=== PATIENT | male | born 1940 | race Caucasian/White ===

== ENCOUNTER 2023-08-27 22:53 | Observation (INO) | payer OTHER, SELFPAY ==
[2023-08-27] VITALS (10 sets, daily range): BP systolic 106–162; BP diastolic 68–94; BMI 25.8
[2023-08-27 15:41] LABS: % Basophils 0.3 % (0-2); % Eosinophils 0.2 % (0-6); % Immature Granulocytes 0.3 % (0-0.5); % Lymphocytes 11.5 % (20.5-51.1); % Monocytes 5.9 % (1.7-9.3); % Neutrophils 81.8 % (42.2-75.2); Absolute Lymphocytes 0.7 10^3/uL (1.2-3.4); Absolute Monocytes 0.4 10^3/uL (0.1-0.6); Absolute Neutrophils 5.3 10^3/uL (1.4-6.5); Hemoglobin 16.4 g/dL (13.0-18.0); Mean Corp Hgb Conc. 34.9 g/dL (33.0-37.0); Mean Corpuscular Hgb 30.5 pg (27.0-31.0); Mean Corpuscular Volume 87.4 fL (80.0-94.0); Mean Platelet Volume 9.3 fL (7.4-10.4); Nucleated Red Blood Cells % 0 % (-); Platelet Count 181 10^3/uL (130-400); Red Blood Cell Count 5.38 10^6/uL (4.70-6.10); Red Cell Dist. Width 13.1 % (11.5-14.5); White Blood Cell Count 6.4 10^3/uL (4.8-10.8)
[2023-08-27 15:55] LABS: ALT (SGPT) < 10 U/L (0-50); AST (SGOT) 25 U/L (17-59); Albumin 4.6 g/dl (3.5-5.0); Alkaline Phosphatase 83 U/L (38-126); Blood Urea Nitrogen 24 mg/dl (9-20); Calcium 9.2 mg/dl (8.4-10.2); Carbon Dioxide 22 mmol/L (22-30); Chloride 101 mmol/L (98-107); Glucose 68 mg/dl (70-99); Potassium 4.8 mmol/L (3.5-5.1); Sodium 134 mmol/L (135-145); Total Bilirubin 1.3 mg/dl (0.2-1.3); Total Protein 7.6 g/dl (6.3-8.2); eGFR > 60.00
--- NOTE | 2023-08-27 19:18 | ED.GENMED ---
History of Present Illness
General
Chief Complaint: Weakness
Source: patient and family
Exam Limitations: none
Time Seen by Provider: 08/27/23 19:02
Nursing documentation reviewed up to this point in time: agreed with
Travel History
Have you had any contact with someone who has COVID-19?: No
Do you have any symptoms of coronavirus? Fever > 100 degrees, chills, cough, shortness of breath, sore throat, loss of taste or smell, muscle aches, or headache?: No
History of Present Illness
History of Present Illness:
83-year-old male Parkinson's on Sinemet 3 times daily compliant with his meds, said about a week or more of weakness had a few falls, never struck his head today could not walk to the bathroom his right leg feels weak has some back pain no nausea or
vomiting no fever states not drinking enough fluids because he urinates frequently, no chest pain no shortness of breath does feel constipated no headache no slurred speech no arm weakness also states his feet intermittently turn purple without
pain not having the symptoms now
Past History
Past History
ED Past Medical History: Hypercholesterolemia and Other (Parkinson's, recurrent bronchitis and pneumonia, status post left carotid stent)
ED Past Surgical History: Orthopedic and Other (Carotid)
Social History
Tobacco: Former smoker
Alcohol: None
Drug: None
Personal:
Living: with family
Employment: Retired
Family History
Family History: Other (Liver cancer)
Review of Systems
Review of Systems
All Other Systems: Not applicable
Constitutional: Denies fever, weight gain, weight loss or fatigue
EENT: Reports no symptoms
Respiratory: Reports no symptoms
ABD/GI: Reports no symptoms
Musculoskeletal: Reports back pain
Skin: Reports no symptoms
Neurological: Reports weakness; Denies dizzy or numbness
Phy Exam
Physical Exam
Physical Exam:
Physical Exam
General: no apparent distress, not acutely ill
Neck: No jaundice no tongue bite, dry lips
Heart: s1/s2 regular rate and rhythm, no murmur. equal radial pulses.
Lungs: no acute respiratory distress. clear bilaterally
Abdomen: Nontender
Neuro: alert and oriented. Mild weakness of the right lower extremity able to lift off the bed
Skin: no rash
Psychiatric: well kept. interactive and cooperative
Extremities: no edema.
Course
Orders/Labs/Results
Orders:
Orders
08/27/23 15:27
Complete Blood Count/With Diff Urgent
Comprehensive Metabolic Panel Urgent
Creatine Phosphokinase Urgent
Comment: ADD ON
08/27/23 19:13
Add On- LAB Urgent
Tests Added?: cpk
Electrocardiogram (*1) Urgent
Reason for Study: Fatigue / Weakness
EKG- Treatment ONCE
0.9% Sodium Chloride 1000 ml [Nss] 1,000 ml IV BOLUS
Acetaminophen [Tylenol] 650 mg PO NOW STA
08/27/23 19:14
Lumbar Spine, 2 or 3 View [CR Lumbar Spine 2 Or 3 Views] Urgent
Comment:
Reason For Exam: pain
08/27/23 19:20
CT Head W/o Iv Contrast Urgent
Comment:
Reason For Exam: fall weaeknss right leg
08/27/23 19:[address] Non Medication Order As Directed
Physician Order: bedside dopplers for foot pulses, thanks
Above order entered?: Yes
08/27/23 19:43
Urinalysis Reflex To Culture Urgent
Date Specimen was Collected: 08/27/23
Time Specimen was Collected: 19:20
Urine Microscopic Reflex Cult Urgent
Carbidopa/Levodopa [Sinemet 25-100] 2 tablet PO NOW STA
Abnormal Lab Results
08/27/23 08/27/23
15:27 19:43
Absolute Lymphs (auto) 0.7 L 10^3/uL
(1.2-3.4)
Neutrophils % 81.8 H %
(42.2-75.2)
Lymphocytes % 11.5 L %
(20.5-51.1)
Sodium 134 L mmol/L
(135-145)
BUN 24 H mg/dl
(9-20)
Glucose 68 L mg/dl
(70-99)
Creatine Kinase 54 L U/L
(55-170)
Urine Ketones 3+ A
(Negative)
Ur Occult Blood Reflex 1+ A
(Negative)
Urine Bilirubin 1+ A
(Negative)
Urine RBC 3-6 A /HPF
(0-2)
08/27/23 15:27
08/27/23 15:27
Vital Signs
Initial and Last Documented VS:
Initial Vital Signs
Temp Pulse Resp BP Pulse Ox
98.3 F 88 19 144/94 99
08/27/23 15:21 08/27/23 15:21 08/27/23 15:21 08/27/23 15:21 08/27/23 15:21
Last Documented Vital Signs
Temp Pulse Resp BP Pulse Ox
98.3 F 66 23 153/83 99
08/27/23 15:21 08/27/23 21:15 08/27/23 21:30 08/27/23 21:30 08/27/23 21:30
MDM/Problems Addressed
Differential Diagnosis Includes:
Dehydration deconditioning UTI compression fracture central process
MDM/Problems Addressed:
Weakness
Chronic conditions affecting care: Neurological disorder
Acute Exacerbation and/or Progression of Chronic Illness: Neurological disorder
*Radiology
Radiology exam reviewed: preliminary read by ED provider
*Pulse Oximetry
Patient hypoxic: no
*Programming Manager Interpretation
Rate: normal
Interpretation: normal
Heart Rate: 78
Rhythm: sinus
*Critical Care Note
Total Time (30-74mins, 75-104mins- exclusive of procedures): Not Applicable
Update Note
Update Note:
8:20 PM urine noted, does have ketones no white cells, CT report noted LS-spine film noted patient was given his evening dose of Sinemet Tylenol and some fluids we will see how he responds
10:10 PM patient still weak, not sure how much of this is reversible, nonetheless he is high risk for falls, believe he benefit from admission for IV fluids and consideration for physical therapy specialty consultation
ED Attending Note
-
Portions of this chart may have been created with voice recognition software.� Occasional wrong word or��sound alike� substitutions may have occurred due to the inherent limitations of voice recognition software.
Discharge Plan
Departure
Patient Disposition: Admit
Date of Disposition: 08/27/23
Time of Disposition: 22:09
Admit to: Med/Surg
Presentation/result/management discussed w/ accepting MD/DO: Hospitalist
Patient with high blood pressure during this ER visit?: No
Condition: Good
Discharge Problem:
Parkinsons, Dehydration
Prescriptions:
No Action
sertraline 100 MG tablet
100 mg PO BID
cyanocobalamin (vitamin B-12) 1,000 MCG tablet
1,000 mcg PO DAILY
carbidopa-levodopa 1 EACH tablet
1.5 tab PO TID
cholecalciferol (vitamin D3) 2,000 UNITS tablet
2,000 unit PO DAILY
omega 1-whp-lni-fish oil [Fish Oil] 1 EACH capsule
1,000 mg PO DAILY
atorvastatin 10 MG tablet
10 mg PO MOWEFR@1800 Qty: 60 3RF
clopidogrel 75 MG tablet
75 mg PO DAILY Qty: 90 3RF
aspirin 81 MG tablet,chewable
81 mg PO DAILY 0RF
lisinopril 2.5 MG tablet
2.5 mg PO DAILY Qty: 90 3RF
metoprolol tartrate 25 MG tablet
25 mg PO Q12 Qty: 180 3RF
Referrals:
Niraj Cook MD [Family Provider] -
Interventions
Interventions:
*Risk Screen - Suicide Last Done: 08/27/23 15:19
*Neglect/Abuse Screening Last Done: 08/27/23 15:19
ED- Fall Risk Assessment Last Done: 08/27/23 19:45
*ED COVID-19 Vaccine History Last Done: 08/27/23 19:45
ED- Cardiac Assessment Last Done: 08/27/23 19:45
ED- Neurological Assessment Last Done: 08/27/23 19:45
ED- Pulmonary Assessment Last Done: 08/27/23 19:45
[2023-08-27 19:43] LABS: Creatine Phosphokinase 54 U/L (55-170)
[2023-08-27 19:54] LABS: Urine Albumin Negative (Neg - Trace); Urine Bilirubin 1+ (Negative); Urine Character Clear (Clear); Urine Color Yellow; Urine Glucose Negative (Negative); Urine Ketone 3+ (Negative); Urine Leukocyte Negative (Negative); Urine Nitrite Negative (Negative); Urine Occult Blood 1+ (Negative); Urine Specific Gravity 1.025 (<1.030); Urine Urobilinogen Negative (Neg - 1+)
[2023-08-27 20:01] LABS: Urine Squamous Cell 0-2 /LPF (Few); Urine White Cell 0-2 /HPF (0-5)
[2023-08-27] MEDS: TYLENOL 650 MG PO (20:15)
[2023-08-27] MEDS: NSS 1000 IV (20:15)
[2023-08-27] MEDS: SINEMET 25-100 2 TABLET PO (21:23)
--- NOTE | 2023-08-27 22:37 | HPS.HSE ---
Family Physician
-
Family Physician: Niraj Cook
Chief Complaint
-
weakness
History of Present Illness
83-year-old male past medical history of Parkinson's disease, constipation, hypertension, anxiety, hypercholesterolemia, left internal carotid artery stent, alcohol use disorder, presenting with progressive weakness associated with a fall a month
ago. He states that his Parkinson disease has been slowly progressing over at least a year. Over the past few weeks he has had increasing difficulty ambulating due to bilateral lower extremity weakness. He also reports tingling in the toes over
the past few months. He denies missing any of his Parkinson's medications.
He has had increased urinary frequency recently and sometimes does not make it to the bathroom in time and urinates himself. He denies any fecal incontinence. He has been constipated and his last bowel movement was a few days ago. He
intermittently has abdominal bloating and pain. He denies any nausea or vomiting.
Patient also complaining of upper back pain across his back without radiation to the upper extremities. No pain currently.
Patient follows Dr. Steele per neurology for his Parkinson's who he sees every 6 months. He last saw him in in January. No recent changes in Parkinson's medications. He had apparently been recommending physical therapy which patient declined.
Medical History
Past Medical History
Past Medical History: Reports Other (Parkinson's disease, constipation, hypertension, anxiety, hypercholesterolemia, left internal carotid artery stent, alcohol use disorder)
Past Surgical History: Reports None
Social History
Tobacco: Non-smoker
Alcohol: None
Drug: None
Family History
Family History: Not pertinent
Allergies / Home Medications
Allergies reflects when Allergies were last updated in [employer].
Home Medications with original date entered in [employer]
Allergy/Medication List:
Allergies
Allergy/AdvReac Type Severity Reaction Status Date / Time
Dxnaslj-SPU-JzZ Reductase Allergy Unknown Verified 11/30/17 18:44
Inhibitor
[Fghnmfs-Zfm-Tnr Reductase
Inhibitor]
Home Medications
cholecalciferol (vitamin D3) 50 mcg (2,000 unit) tablet 2,000 unit PO DAILY 11/28/16
cyanocobalamin (vitamin B-12) 1,000 mcg tablet 1,000 mcg PO DAILY 11/28/16
sertraline 100 mg tablet 100 mg PO BID 11/28/16
aspirin 325 mg tablet 325 mg PO DAILY 08/27/23
carbidopa 25 mg-levodopa 100 mg tablet 2 tab PO TID 08/27/23
Review of Systems
-
History Source: Patient
A 12 point ROS was completed and negative except as noted: Yes
Constitutional: Reports No Symptoms
EENT: Reports No Symptoms
Respiratory: Reports No Symptoms
Cardiac: Reports No Symptoms
Abdomen/GI: Reports No Symptoms
: Reports No Symptoms
Musculoskeletal: Reports No Symptoms
Skin: Reports No Symptoms
Neurological: Reports See HPI
Endocrine: Reports No Symptoms
Hematologic/Lymphatic: Reports No Symptoms
Psych: Reports No Symptoms
Physical Exam
Vital Signs
Vital Signs
Temp Pulse Resp BP Pulse Ox
98.3 F 66 23 153/83 99
08/27/23 15:21 08/27/23 21:15 08/27/23 21:30 08/27/23 21:30 08/27/23 21:30
Physical Exam
General: Well Developed, Well Nourished and No Apparent Distress
HEENT: NormoCephalic, Moist mucous membranes and Atraumatic
Respiratory: Clear
Cardiac: S1/S2 and Regular Rhythm; No Murmur or Rub
GI: Soft, Non Tender, Non Distended and Normal Bowel Sounds; No Organomegaly
Rectal: Deferred by Provider
Musculoskeletal: No Clubbing, No Cyanosis and No Edema
Skin: No Rash
Neuro: Nonfocal/grossly intact
Laboratory Results
-
08/27/23 15:27
08/27/23 15:27
Laboratory Results
Total Bilirubin 1.3 mg/dl (0.2-1.3) 08/27/23 15:27
AST 25 U/L (17-59) 08/27/23 15:27
ALT < 10 U/L (0-50) 08/27/23 15:27
Alkaline Phosphatase 83 U/L (38-126) 08/27/23 15:27
Data Reviewed
-
Lab Data: Labs Reviewed by me
Old Records: Reviewed
Impression/Plan
-
IMPRESSION:
PLAN:
# Progressive weakness secondary to worsening Parkinson's disease
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
-Continue carbidopa-levodopa
-Outpatient follow-up with neurology
-Check B12, TSH
-Continue B12 supplementation
-PT/OT
# Urinary incontinence episode secondary Parkinson
-Urinalysis negative for infection
-Bladder scan protocol
# Constipation/intermittent abdominal pain secondary to immobility
-Start MiraLAX once a day
# Upper back pain likely due to degenerative disc disease
-Lumbar x-ray no acute pathology
Hypercholesterolemia
-Continue statin
Carotid artery stenosis status post left carotid artery stent
-Continue aspirin
Essential hypertension
-Continue lisinopril, metoprolol
Alcohol use disorder
Anxiety
-Continue sertraline
DNR/DNI
DVT prophylaxis�heparin
Regular diet
[2023-08-28] VITALS (15 sets, daily range): BP systolic 107–176; BP diastolic 71–101; PULSE 73; O2SAT 98
[2023-08-28 07:00] LABS: % Basophils 0.6 % (0-2); % Eosinophils 0.2 % (0-6); % Immature Granulocytes 0.2 % (0-0.5); % Lymphocytes 18.4 % (20.5-51.1); % Monocytes 7.8 % (1.7-9.3); % Neutrophils 72.8 % (42.2-75.2); Absolute Monocytes 0.4 10^3/uL (0.1-0.6); Absolute Neutrophils 3.8 10^3/uL (1.4-6.5); Hematocrit 42.4 % (39.0-52.0); Hemoglobin 14.1 g/dL (13.0-18.0); Mean Corp Hgb Conc. 33.3 g/dL (33.0-37.0); Mean Corpuscular Hgb 29.9 pg (27.0-31.0); Mean Corpuscular Volume 89.8 fL (80.0-94.0); Mean Platelet Volume 9.5 fL (7.4-10.4); Nucleated Red Blood Cells % 0 % (-); Platelet Count 144 10^3/uL (130-400); Red Blood Cell Count 4.72 10^6/uL (4.70-6.10); Red Cell Dist. Width 13.1 % (11.5-14.5); White Blood Cell Count 5.2 10^3/uL (4.8-10.8)
--- NOTE | 2023-08-28 07:13 | EDRN ---
Report recieved from DANUTA Lara. Pt comfortably in stretcher, IVF not infusing at this time.
[2023-08-28 07:36] LABS: ALT (SGPT) < 10 U/L (0-50); AST (SGOT) 20 U/L (17-59); Albumin 3.7 g/dl (3.5-5.0); Alkaline Phosphatase 64 U/L (38-126); Blood Urea Nitrogen 24 mg/dl (9-20); Calcium 8.9 mg/dl (8.4-10.2); Carbon Dioxide 19 mmol/L (22-30); Chloride 100 mmol/L (98-107); Estimated Creatinine Clearance 71 ml/min; Glucose 52 mg/dl (70-99); Potassium 4.3 mmol/L (3.5-5.1); Sodium 135 mmol/L (135-145); Total Protein 6.3 g/dl (6.3-8.2); eGFR > 60.00
[2023-08-28] MEDS: ASPIRIN 325 MG PO (08:03)
[2023-08-28] MEDS: MIRALAX 17 GRAMS PO (08:03)
[2023-08-28] MEDS: VITAMIN D3 (cholecalciferol) 50 MCG PO (08:04)
[2023-08-28] MEDS: VITAMIN B-12 1000 MCG PO (08:04)
[2023-08-28] MEDS: ZOLOFT 100 MG PO ×2 (08:04→16:48)
[2023-08-28] MEDS: SINEMET 25-100 2 TABLET PO ×3 (08:04→21:23)
[2023-08-28 08:05] LABS: Vitamin B12 642 pg/ml (239-931)
[2023-08-28] MEDS: HEPARIN 5000 UNITS SC ×2 (08:05→19:38)
[2023-08-28 08:39] LABS: Glucose - Point of Care 85 mg/dl (70-99)
--- NOTE | 2023-08-28 08:59 | EDRN ---
VAT contacted for labs and cortosyn injection.
--- NOTE | 2023-08-28 09:10 | EDRN ---
VAT at bedside along with PT
--- NOTE | 2023-08-28 10:19 | EDRN ---
Pt completed 50&
--- NOTE | 2023-08-28 10:21 | EDRN ---
Pt completed 50% of breakfast tray, light dimmed per patient request and HOB lowered. Family at bedside with patient. Call light in reach
[2023-08-28 10:22] LABS: ACTH Stim Cortisol 0 Min 19.9 ug/dl
[2023-08-28] MEDS: CORTROSYN 0.25 MG IV (10:31)
--- NOTE | 2023-08-28 12:13 | W.PN.HOSP.TC ---
Today's Communication/Plan
-
Lisinopril
Sodium bicarbonate
PT/OT
Monitor glucoses
Assessment / Plan
Assessment / Plan
Gen-AAOx3, NAD
HEENT-NC, AT, anicteric, clear oral mm
Neck-supple
CV-reg, no M, +S1/S2
Lungs-clear B/L
Abd-soft, NT, ND
Ext-no edema
Musculoskeletal-no cyanosis, clubbing
Skin-warm and dry
Neuro-grossly non-focal
Psych-calm, cooperative
Generalized weakness -likely due to deconditioning in the setting of frailty and advancing Parkinson's disease. He is sedentary at home. Does not exercise. Recommend continuing PT/OT. Will need discharge to SNF. Discussed with daughter at the
bedside. Patient states the weakness has been gradual onset over the past few years and progressing. Was using a cane at home up until a month ago when he switched to a walker due to progressive weakness. TSH normal. No signs or symptoms of
infection.
CT head done in the emergency room shows no acute disease, does show diffuse cortical atrophy with mild nonspecific white matter changes.
Gap metabolic acidosis -anion gap 16. Urine ketones positive. Serum bicarbonate 19. Unclear etiology. Will start oral sodium bicarbonate, repeat labs tomorrow.
Hypoglycemia -glucose 52 on serum assay this morning. No evidence of adrenal insufficiency on ACTH stimulation test thing. Hypoglycemia is listed as a potential side effect of sertraline and he is on a high dose of 100 mg twice daily.
Hyponatremia -present on admission. Now resolved.
Elevated blood pressure -he likely has essential hypertension. Not on antihypertensives at home. Relative bradycardia noted. I spoke with on the phone and she states that he is not on antihypertensives at home but previously was several
years ago. Patient does not check blood pressures at home. Can start with low-dose lisinopril and monitor response.
Constipation -start bowel regimen.
Anxiety disorder/panic attacks -he is on high-dose sertraline.
Carotid stenosis -status post left carotid stenting.
DNR
Dispo -will need SNF on discharge.
updated on the phone. She prefers [facility] as a facility for rehab. Case management updated.
Anticipated Discharge: Within 24 hours
Subjective/Interval History
-
Date of Service: August 28, 2023
Patient seen/examined. Complaining of chronic weakness.
Objective Data
-
Labs:
Laboratory Results
08/28/23
06:18
WBC 5.2
Hgb 14.1
Hct 42.4
Plt Count 144 D
Sodium 135
Potassium 4.3
Chloride 100
Carbon Dioxide 19 L
BUN 24 H
Creatinine 0.8
Glucose 52 L*
Calcium 8.9
Total Bilirubin 1.0
AST 20
ALT < 10
Alkaline Phosphatase 64
Vital Signs:
Vital Signs
Temp Pulse Resp BP Pulse Ox
98.3 F 62 21 153/74 98
08/27/23 15:21 08/28/23 00:45 08/28/23 00:45 08/28/23 10:00 08/28/23 09:17
Review of Systems
-
History Source: Patient
All other systems: Reviewed and negative
[2023-08-28 12:48] LABS: ACTH Stim Cortisol 60 Min 39.5 ug/dl
[2023-08-28] MEDS: ZESTRIL 10 MG PO (13:29)
[2023-08-28] MEDS: SODIUM BICARBONATE 650 MG PO ×2 (15:39→21:23)
[2023-08-28 17:56] LABS: Glucose - Point of Care 124 mg/dl (70-99)
[2023-08-28 21:38] LABS: Glucose - Point of Care 90 mg/dl (70-99)
[2023-08-29 07:00] VITALS: BP 165/91
[2023-08-29 07:51] LABS: Glucose - Point of Care 80 mg/dl (70-99)
[2023-08-29 08:25] LABS: Blood Urea Nitrogen 22 mg/dl (9-20); Calcium 9.1 mg/dl (8.4-10.2); Carbon Dioxide 25 mmol/L (22-30); Chloride 97 mmol/L (98-107); Estimated Creatinine Clearance 71 ml/min; Glucose 74 mg/dl (70-99); Potassium 4.4 mmol/L (3.5-5.1); Sodium 132 mmol/L (135-145); eGFR > 60.00
[2023-08-29] MEDS: VITAMIN B-12 1000 MCG PO (09:16)
[2023-08-29] MEDS: ASPIRIN 325 MG PO (09:16)
[2023-08-29] MEDS: MIRALAX 17 GRAMS PO (09:16)
[2023-08-29] MEDS: ZOLOFT 100 MG PO ×2 (09:17→20:17)
[2023-08-29] MEDS: SINEMET 25-100 2 TABLET PO ×3 (09:17→22:25)
[2023-08-29] MEDS: VITAMIN D3 (cholecalciferol) 50 MCG PO (09:17)
[2023-08-29] MEDS: HEPARIN 5000 UNITS SC ×2 (09:17→20:16)
[2023-08-29] MEDS: ZESTRIL 10 MG PO (09:18)
[2023-08-29] MEDS: SODIUM BICARBONATE 650 MG PO (09:18)
--- NOTE | 2023-08-29 09:27 | W.PN.HOSP.TC ---
Today's Communication/Plan
-
Check urine studies
Fluid restriction
Discharge planning
Assessment / Plan
Assessment / Plan
Gen-AAOx3, NAD
HEENT-NC, AT, anicteric, clear oral mm
Neck-supple
CV-reg, no M, +S1/S2
Lungs-clear B/L
Abd-soft, NT, ND
Ext-no edema
Musculoskeletal-no cyanosis, clubbing
Skin-warm and dry
Neuro-grossly non-focal
Psych-calm, cooperative
Generalized weakness -likely due to deconditioning in the setting of frailty and advancing Parkinson's disease. He is sedentary at home. Does not exercise. Recommend continuing PT/OT. Will need discharge to SNF. Discussed with daughter at the
bedside. Patient states the weakness has been gradual onset over the past few years and progressing. Was using a cane at home up until a month ago when he switched to a walker due to progressive weakness. TSH normal. No signs or symptoms of
infection.
CT head done in the emergency room shows no acute disease, does show diffuse cortical atrophy with mild nonspecific white matter changes.
Gap metabolic acidosis -resolved. Bicarbonate 25. Will stop sodium bicarbonate and recheck labs tomorrow.
Hypoglycemia -glucose 74 on serum assay this morning. No evidence of adrenal insufficiency on ACTH stimulation test thing. Hypoglycemia is listed as a potential side effect of sertraline and he is on a high dose of 100 mg twice daily.
Hyponatremia -present on admission. Sodium 132 today. TSH normal. Check urine studies.
Elevated blood pressure -he likely has essential hypertension. Not on antihypertensives at home. Relative bradycardia noted. I spoke with on the phone and she states that he is not on antihypertensives at home but previously was several
years ago. Patient does not check blood pressures at home. Can start with low-dose lisinopril and monitor response.
Constipation -start bowel regimen.
Anxiety disorder/panic attacks -he is on high-dose sertraline.
Carotid stenosis -status post left carotid stenting.
DNR
Dispo -will need SNF on discharge. prefers [facility].
I offered the patient melatonin in the hospital to help him sleep but he declined.
Anticipated Discharge: Within 24 hours
Subjective/Interval History
-
Date of Service: August 29, 2023
Patient seen and examined. Sitting in the chair. Complaining of generalized weakness. Did not sleep well.
Objective Data
-
Labs:
Laboratory Results
08/29/23
06:51
Sodium 132 L
Potassium 4.4
Chloride 97 L
Carbon Dioxide 25
BUN 22 H
Creatinine 0.8
Glucose 74
Calcium 9.1
Vital Signs:
Vital Signs
Temp Pulse Resp BP Pulse Ox
97.5 F 72 18 165/91 97
08/29/23 07:00 08/29/23 07:00 08/29/23 07:00 08/29/23 07:00 08/29/23 07:00
I&O
08/28/23 08/29/23 08/30/23
06:59 06:59 06:59
Intake Total 240 / 240
Output Total 400 / 400
Balance -160 / -160
Review of Systems
-
History Source: Patient
All other systems: Reviewed and negative
[2023-08-29] MEDS: COLACE 100 MG PO ×2 (11:05→20:16)
[2023-08-29 11:39] LABS: Osmolality Urine 659 mOsm/kg (300-900)
[2023-08-29 11:54] LABS: Glucose - Point of Care 102 mg/dl (70-99)
[2023-08-29 11:59] LABS: Urine Sodium 130 mmol/L (30-90)
[2023-08-29 15:00] VITALS: BP 121/66
--- NOTE | 2023-08-29 15:29 | CM ---
met with patient and daughter at bedside.patient lives with ,2 dghts in house with 4 step to enter,his bed and bath is on the second level(up 6 steps).he amb with a walker,is I with his walk in shower.he does not use his cpap. his pcp is "Kiko"hilary brar and he uses [facility] [employer] in [place].patient is adm with parkinson's /weakness.he was seewn by therapy who recommended snf.daughter wants [facility].referral sent to [facility] for [facility].patient is stable for dc to facility
per attending.
[2023-08-29 16:54] LABS: Glucose - Point of Care 91 mg/dl (70-99)
[2023-08-29] MEDS: XANAX 0.25 MG PO (17:01)
[2023-08-29 21:24] LABS: Glucose - Point of Care 89 mg/dl (70-99)
[2023-08-29 23:00] VITALS: BP 120/71
[2023-08-30 07:12] LABS: Blood Urea Nitrogen 20 mg/dl (9-20); Calcium 9.5 mg/dl (8.4-10.2); Carbon Dioxide 29 mmol/L (22-30); Chloride 97 mmol/L (98-107); Estimated Creatinine Clearance 63 ml/min; Glucose 79 mg/dl (70-99); Potassium 4.4 mmol/L (3.5-5.1); Sodium 133 mmol/L (135-145); eGFR > 60.00
[2023-08-30 08:14] VITALS: BP 142/83
[2023-08-30] MEDS: SINEMET 25-100 2 TABLET PO ×3 (08:47→22:12)
[2023-08-30] MEDS: ZOLOFT 100 MG PO ×2 (08:47→20:05)
[2023-08-30] MEDS: ASPIRIN 325 MG PO (08:48)
[2023-08-30] MEDS: ZESTRIL 10 MG PO (08:48)
[2023-08-30] MEDS: COLACE 100 MG PO ×2 (08:48→20:05)
[2023-08-30] MEDS: VITAMIN D3 (cholecalciferol) 50 MCG PO (08:48)
[2023-08-30] MEDS: HEPARIN 5000 UNITS SC ×2 (08:48→20:05)
[2023-08-30] MEDS: VITAMIN B-12 1000 MCG PO (08:48)
[2023-08-30] MEDS: MIRALAX 17 GRAMS PO (08:48)
--- NOTE | 2023-08-30 09:27 | W.PN.HOSP.TC ---
Today's Communication/Plan
-
Discharge planning
Assessment / Plan
Assessment / Plan
Gen-AAOx3, NAD
HEENT-NC, AT, anicteric, clear oral mm
Neck-supple
CV-reg, no M, +S1/S2
Lungs-clear B/L
Abd-soft, NT, ND
Ext-no edema
Musculoskeletal-no cyanosis, clubbing
Skin-warm and dry
Neuro-grossly non-focal
Psych-calm, cooperative
Generalized weakness -likely due to deconditioning in the setting of frailty and advancing Parkinson's disease. He is sedentary at home. Does not exercise. Recommend continuing PT/OT. Will need discharge to SNF. Discussed with daughter at the
bedside. Patient states the weakness has been gradual onset over the past few years and progressing. Was using a cane at home up until a month ago when he switched to a walker due to progressive weakness. TSH normal. No signs or symptoms of
infection.
CT head done in the emergency room shows no acute disease, does show diffuse cortical atrophy with mild nonspecific white matter changes.
Gap metabolic acidosis -resolved. Off sodium bicarbonate.
Hypoglycemia -glucose 74 on serum assay this morning. No evidence of adrenal insufficiency on ACTH stimulation test thing. Hypoglycemia is listed as a potential side effect of sertraline and he is on a high dose of 100 mg twice daily.
Hyponatremia -present on admission. Sodium 133 today. TSH normal. Urine studies consistent with ADH excess. Fluid restriction.
Elevated blood pressure -he likely has essential hypertension. Not on antihypertensives at home. Relative bradycardia noted. I spoke with on the phone and she states that he is not on antihypertensives at home but previously was several
years ago. Patient does not check blood pressures at home. Continue lisinopril.
Constipation -start bowel regimen.
Anxiety disorder/panic attacks -he is on high-dose sertraline. As needed Xanax started. Offered psychiatry consult but he declined.
Carotid stenosis -status post left carotid stenting.
DNR
Dispo -will need SNF on discharge. prefers [facility]. Medically stable for discharge. Case management aware.
Anticipated Discharge: Within 24 hours
Subjective/Interval History
-
Date of Service: August 30, 2023
Patient seen and examined. Feeling depressed. No appetite this morning. Denies anxiety.
Objective Data
-
Labs:
Laboratory Results
08/30/23
06:24
Sodium 133 L
Potassium 4.4
Chloride 97 L
Carbon Dioxide 29
BUN 20
Creatinine 0.9
Glucose 79
Calcium 9.5
Vital Signs:
Vital Signs
Temp Pulse Resp BP Pulse Ox
97.6 F 62 18 142/83 98
08/30/23 08:14 08/30/23 08:14 08/30/23 08:14 08/30/23 08:14 08/30/23 08:14
I&O
08/29/23 08/30/23 08/31/23
06:59 06:59 07:59
Intake Total 240 / 240 480 / 480
Output Total 400 / 400 400 / 400
Balance -160 / -160 80 / 80
Review of Systems
-
History Source: Patient
All other systems: Reviewed and negative
[2023-08-30 11:28] LABS: Glucose - Point of Care 78 mg/dl (70-99)
[2023-08-30 14:34] VITALS: BP 138/78
[2023-08-30 14:54] VITALS: BP 100/67; BP 70/46; BP 78/51; PULSE 54; PULSE 60; PULSE 85
[2023-08-30 14:58] VITALS: BP 100/67; BP 70/46; BP 80/50; PULSE 79; O2SAT 96
[2023-08-30] MEDS: XANAX 0.25 MG PO (16:00)
--- NOTE | 2023-08-30 16:17 | PTCARENOTE ---
Patient reports 2/10 chest pain/discomfort (lasting about 15 mins), and L shoulder pain that continues. VS 103/56, HR 79, RR 18, POx 98% RA. EKG done shows NSR inferior infarct, age undetermined. Dr. Dougherty notified. PRN xanax given. STAT trop
drawn, will monitor.
[2023-08-30 16:37] LABS: Troponin I < 0.012 ng/ml
[2023-08-30] MEDS: ProAmatine 10 MG PO (18:08)
[2023-08-30 22:24] LABS: Troponin I < 0.012 ng/ml
[2023-08-30 23:00] VITALS: BP 132/94
[2023-08-31 06:37] LABS: Troponin I < 0.012 ng/ml
[2023-08-31 07:00] VITALS: BP 156/81
--- NOTE | 2023-08-31 09:17 | W.PN.HOSP.TC ---
Today's Communication/Plan
-
Discharge planning
Assessment / Plan
Assessment / Plan
Gen-AAOx3, NAD
HEENT-NC, AT, anicteric, clear oral mm
Neck-supple
CV-reg, no M, +S1/S2
Lungs-clear B/L
Abd-soft, NT, ND
Ext-no edema
Musculoskeletal-no cyanosis, clubbing
Skin-warm and dry
Neuro-grossly non-focal
Psych-calm, cooperative
Generalized weakness -likely due to deconditioning in the setting of frailty and advancing Parkinson's disease. He is sedentary at home. Does not exercise. Recommend continuing PT/OT. Will need discharge to SNF. Discussed with daughter at the
bedside. Patient states the weakness has been gradual onset over the past few years and progressing. Was using a cane at home up until a month ago when he switched to a walker due to progressive weakness. TSH normal. No signs or symptoms of
infection.
CT head done in the emergency room shows no acute disease, does show diffuse cortical atrophy with mild nonspecific white matter changes.
Gap metabolic acidosis -resolved. Off sodium bicarbonate.
Hypoglycemia -glucose 74 on serum assay this morning. No evidence of adrenal insufficiency on ACTH stimulation test thing. Hypoglycemia is listed as a potential side effect of sertraline and he is on a high dose of 100 mg twice daily.
Hyponatremia -present on admission. Sodium 133 today. TSH normal. Urine studies consistent with ADH excess. Fluid restriction.
Elevated blood pressure -he likely has essential hypertension. Not on antihypertensives at home. Relative bradycardia noted. I spoke with on the phone and she states that he is not on antihypertensives at home but previously was several
years ago. Patient does not check blood pressures at home. Continue lisinopril.
Constipation -start bowel regimen.
Anxiety disorder/panic attacks -he is on high-dose sertraline. As needed Xanax started. Offered psychiatry consult but he declined.
Carotid stenosis -status post left carotid stenting.
DNR
Dispo -will need SNF on discharge. prefers [facility]. Medically stable for discharge. Case management aware.
Anticipated Discharge: Within 24 hours
Subjective/Interval History
-
Date of Service: August 31, 2023
Patient seen and examined. No complaints.
Objective Data
-
Vital Signs:
Vital Signs
Temp Pulse Resp BP Pulse Ox
97.3 F 67 16 156/81 97
08/31/23 07:00 08/31/23 07:00 08/31/23 07:00 08/31/23 07:00 08/31/23 07:00
I&O
08/30/23 08/31/23 09/01/23
05:59 06:59 06:59
Intake Total
Output Total
Balance
Review of Systems
-
History Source: Patient
All other systems: Reviewed and negative
[2023-08-31] MEDS: ASPIRIN 325 MG PO (09:27)
[2023-08-31] MEDS: VITAMIN B-12 1000 MCG PO (09:28)
[2023-08-31] MEDS: ZOLOFT 100 MG PO ×2 (09:29→21:50)
[2023-08-31] MEDS: ZESTRIL 10 MG PO (09:29)
[2023-08-31] MEDS: SINEMET 25-100 2 TABLET PO ×3 (09:29→21:50)
[2023-08-31] MEDS: ProAmatine PO (09:29)
[2023-08-31] MEDS: COLACE 100 MG PO ×2 (09:30→21:50)
[2023-08-31] MEDS: VITAMIN D3 (cholecalciferol) 50 MCG PO (09:30)
[2023-08-31] MEDS: MIRALAX 17 GRAMS PO (09:33)
[2023-08-31] MEDS: HEPARIN 5000 UNITS SC ×2 (09:33→21:50)
[2023-08-31] MEDS: ProAmatine 10 MG PO ×2 (13:16→17:36)
[2023-08-31 15:35] VITALS: BP 73/48
[2023-08-31 17:43] VITALS: BP 82/53
[2023-08-31 23:01] VITALS: BP 147/81
[2023-09-01 07:35] VITALS: BP 155/92
[2023-09-01] MEDS: SINEMET 25-100 2 TABLET PO ×3 (08:32→21:42)
[2023-09-01] MEDS: MIRALAX PO ×2 (08:32→08:38)
[2023-09-01] MEDS: ASPIRIN 325 MG PO (08:32)
[2023-09-01] MEDS: HEPARIN 5000 UNITS SC ×2 (08:32→21:42)
[2023-09-01] MEDS: VITAMIN B-12 1000 MCG PO (08:32)
[2023-09-01] MEDS: COLACE PO ×3 (08:33→21:53)
[2023-09-01] MEDS: ZOLOFT 100 MG PO ×2 (08:33→21:42)
[2023-09-01] MEDS: VITAMIN D3 (cholecalciferol) 50 MCG PO (08:33)
[2023-09-01] MEDS: ZESTRIL 10 MG PO (08:43)
[2023-09-01] MEDS: ProAmatine PO (08:43)
--- NOTE | 2023-09-01 09:34 | W.PN.HOSP.TC ---
Today's Communication/Plan
-
Discharge to short-term rehab when bed available
Assessment / Plan
Assessment / Plan
Generalized weakness -likely due to deconditioning in the setting of frailty and advancing Parkinson's disease. He is sedentary at home. Does not exercise. Recommend continuing PT/OT. Discussed with daughter at the bedside. Patient states the
weakness has been gradual onset over the past few years and progressing. Was using a cane at home up until a month ago when he switched to a walker due to progressive weakness. TSH normal. No signs or symptoms of infection. CT head done in the
emergency room shows no acute disease, does show diffuse cortical atrophy with mild nonspecific white matter changes. Medically stable for discharge to short-term rehab when bed available
Gap metabolic acidosis -resolved. Off sodium bicarbonate.
Hypoglycemia -resolved
Hyponatremia -present on admission. Sodium 133 today. TSH normal. Urine studies consistent with ADH excess. Continue fluid restriction.
Labile hypertension�patient was started on lisinopril, but his blood pressure dropped to 73/48 yesterday. Will stop lisinopril. Continue midodrine 10 mg 3 times daily, blood pressure improved today at 114/60.
Constipation -started bowel regimen.
Anxiety disorder/panic attacks -he is on high-dose sertraline. As needed Xanax started. Offered psychiatry consult but he declined.
Carotid stenosis -status post left carotid stenting.
DVT prophylaxis�subcu heparin
DNR
Physical Exam
General: No acute distress
HEENT: Normocephalic, Atraumatic, EOMI, MMM
Respiratory: Clear to Auscultation bilaterally
Cardiac: Normal S1/S2, Regular Rate and Rhythm
GI: Soft, Nontender, Nondistended, Normal Bowel Sounds
Extremities: No Clubbing, Cyanosis, or Edema
Neuro: Nonfocal/Grossly Intact
Psych: Calm, Cooperative
Derm: No Visible lesions
Anticipated Discharge: Within 24 hours
Subjective/Interval History
-
Date of Service: September 01, 2023
Patient reports weakness has improved. No nausea, no vomiting. No lightheadedness, no dizziness.
Objective Data
-
Vital Signs:
Vital Signs
Temp Pulse Resp BP Pulse Ox
97.5 F 64 16 155/92 93
09/01/23 07:35 09/01/23 08:43 09/01/23 07:35 09/01/23 08:43 09/01/23 07:35
I&O
08/31/23 09/01/23 09/02/23
06:59 06:59 06:59
Intake Total 960 / 960
Output Total 100 / 100
Balance 860 / 860
--- NOTE | 2023-09-01 09:37 | CM ---
Addendum entered by Debo Calderon 09/01/23 13:42:
additional referrals to [facility] and [facility] per options review with spouse.
Original Note:
TC to [facility], no beds available.
TC to patients spouse, referrals to [facility] and [facility].
Patient needs insurance auth once bed available and will need additional PT/OT notes.
Plan: skilled rehab once bed available and auth obtained.
[2023-09-01] MEDS: ProAmatine 10 MG PO ×2 (14:09→17:18)
[2023-09-01 15:40] VITALS: BP 114/60
[2023-09-01 15:54] VITALS: BP 150/87
[2023-09-01 15:57] VITALS: BP 150/82; O2SAT 93
[2023-09-01 23:00] VITALS: BP 125/70
[2023-09-02 07:00] VITALS: BP 152/73
--- NOTE | 2023-09-02 08:01 | W.PN.HOSP.TC ---
Today's Communication/Plan
-
Medically stable for discharge to rehab today
Assessment / Plan
Assessment / Plan
Generalized weakness -likely due to deconditioning in the setting of frailty and advancing Parkinson's disease. He is sedentary at home. Does not exercise. Recommend continuing PT/OT. Discussed with daughter at the bedside. Patient states the
weakness has been gradual onset over the past few years and progressing. Was using a cane at home up until a month ago when he switched to a walker due to progressive weakness. TSH normal. No signs or symptoms of infection. CT head done in the
emergency room shows no acute disease, does show diffuse cortical atrophy with mild nonspecific white matter changes. Medically stable for discharge to short-term rehab when bed available
Gap metabolic acidosis -resolved. Stable off sodium bicarbonate.
Hypoglycemia -resolved
Hyponatremia -present on admission. Sodium 133 today. TSH normal. Urine studies consistent with ADH excess. Continue fluid restriction.
Labile hypertension�patient was started on lisinopril, but his blood pressure dropped to 73/48 on 08/31/23. Stopped lisinopril. Continue midodrine 10 mg 3 times daily, blood pressure improved today.
Constipation - resolved on bowel regimen.
Urinary and stool incontinence�recommend outpatient pelvic floor PT, discussed with 09/01
Anxiety disorder/panic attacks -he is on high-dose sertraline. As needed Xanax started. Offered psychiatry consult but he declined.
Carotid stenosis -status post left carotid stenting.
DVT prophylaxis�subcu heparin
DNR
Updated on phone 09/01
Physical Exam
General: Appears weak and deconditioned, no acute distress
HEENT: Normocephalic, Atraumatic, EOMI, MMM
Respiratory: Clear to Auscultation bilaterally
Cardiac: Normal S1/S2, Regular Rate and Rhythm
GI: Soft, Nontender, Nondistended, Normal Bowel Sounds
Extremities: No Clubbing, Cyanosis, or Edema
Neuro: Nonfocal/Grossly Intact
Psych: Calm, Cooperative
Anticipated Discharge: Today
Subjective/Interval History
-
Date of Service: September 02, 2023
Denies lightheadedness, dizziness. No nausea, no vomiting. He is incontinent of both stool and urine. He is eager for discharge to rehab.
Objective Data
-
Labs:
Laboratory Results
09/02/23
06:00
WBC Pending
Hgb Pending
Hct Pending
Plt Count Pending
Sodium Pending
Potassium Pending
Chloride Pending
Carbon Dioxide Pending
BUN Pending
Creatinine Pending
Glucose Pending
Calcium Pending
Vital Signs:
Vital Signs
Temp Pulse Resp BP Pulse Ox
97.8 F 62 18 125/70 97
09/01/23 23:00 09/01/23 23:00 09/01/23 23:00 09/01/23 23:00 09/01/23 23:00
I&O
09/01/23 09/02/23 09/03/23
06:59 06:59 06:59
Intake Total 960 / 960 1080 / 1080 240 / 240
Output Total 100 / 100
Balance 860 / 860 1080 / 1080 240 / 240
[2023-09-02 08:55] LABS: Hematocrit 41.9 % (39.0-52.0); Hemoglobin 14.6 g/dL (13.0-18.0); Mean Corp Hgb Conc. 34.8 g/dL (33.0-37.0); Mean Corpuscular Hgb 30.6 pg (27.0-31.0); Mean Corpuscular Volume 87.8 fL (80.0-94.0); Platelet Count 146 10^3/uL (130-400); Red Blood Cell Count 4.77 10^6/uL (4.70-6.10); Red Cell Dist. Width 13.2 % (11.5-14.5); White Blood Cell Count 7.2 10^3/uL (4.8-10.8)
[2023-09-02 09:26] LABS: Blood Urea Nitrogen 20 mg/dl (9-20); Calcium 9.2 mg/dl (8.4-10.2); Carbon Dioxide 28 mmol/L (22-30); Chloride 97 mmol/L (98-107); Estimated Creatinine Clearance 63 ml/min; Glucose 89 mg/dl (70-99); Potassium 4.3 mmol/L (3.5-5.1); Sodium 133 mmol/L (135-145); eGFR > 60.00
[2023-09-02] MEDS: ProAmatine PO ×3 (09:55→17:30)
[2023-09-02] MEDS: ASPIRIN 325 MG PO (09:56)
[2023-09-02] MEDS: HEPARIN 5000 UNITS SC (09:56)
[2023-09-02] MEDS: MIRALAX PO (09:56)
[2023-09-02] MEDS: COLACE PO (09:56)
[2023-09-02] MEDS: ZOLOFT 100 MG PO (09:57)
[2023-09-02] MEDS: VITAMIN D3 (cholecalciferol) 50 MCG PO (09:57)
[2023-09-02] MEDS: SINEMET 25-100 2 TABLET PO ×2 (09:57→16:59)
[2023-09-02] MEDS: VITAMIN B-12 1000 MCG PO (09:57)
--- NOTE | 2023-09-02 13:09 | CM ---
CM reviewed pt with Dr German shafer for dc today
Pt denied at , , and [facility]
Beds offered at [facility] and [facility]
Bedside meeting with pt, spouse and dtr
Spouse selected [facility] after reviewing [facility] ratings
[employer] auth obtained
Medical necessity and transport form on chart
Pt remains OBS
SNF #[id number] 7 days
09/01-09/07
[facility] Acute Care #[id number]
Update to spouse via phone and [facility]/admissions Bekah
Discharge Disposition- [facility] via ambulance [address]
Phone- [phone] Fax- [phone]
[2023-09-02 15:00] VITALS: BP 143/88
--- NOTE | 2023-09-02 16:14 | W.DCSUMMARY ---
Discharge Summary
Discharge Data
Date of Admission: 08/27/23
Date of Discharge: 09/02/23
-
Pending Results: No
Hospital Course
Discharge diagnosis:
Generalized weakness due to deconditioning
Parkinson's disease
Hyponatremia
Constipation
Urinary and stool incontinence
Anxiety disorder with panic attacks
Carotid artery stenosis
Metabolic acidosis
Hypoglycemia
Head CT:
No acute intracranial abnormalities.
Findings compatible with diffuse cortical atrophy with mild nonspecific white matter changes as described above.
Hospital course:
83-year-old male with a past medical history of Parkinson's disease, constipation, hypertension, anxiety, hypercholesterolemia, left internal carotid artery stent, and alcohol use disorder was admitted with progressive weakness associated with a
fall a month ago.� He states that his Parkinson disease has been slowly progressing over at least a year.� Over the past few weeks he has had increasing difficulty ambulating due to bilateral lower extremity weakness.�Patient follows Dr. Steele for
neurology for his Parkinson's who he sees every 6 months.�
Patient had a head CT, which was negative for acute intracranial abnormalities, does show diffuse cortical atrophy with mild nonspecific white matter changes. Suspect that his generalized weakness is due to deconditioning and progressive
Parkinson's disease. He was seen in conjunction with PT, who recommends short-term rehab.
Patient was noted to have orthostatic hypotension. He was started on midodrine 10 mg p.o. 3 times daily, his orthostatic hypotension improved. He also has labile hypertension. He was started on lisinopril 10 mg daily. However he did not tolerate
this dose, and his blood pressure did drop as low as 73/48. Lisinopril was discontinued, and his blood pressure normalized.
Patient had constipation, which resolved on a bowel regimen. He will be discharged on MiraLAX daily.
Patient's complained that he has fecal and urinary incontinence. This has become more frequent. Suspect that he has pelvic floor dysfunction. Recommend outpatient pelvic floor PT.
He does have generalized anxiety with associated panic attacks. He was continued on his high-dose sertraline 100 mg twice a day. He did receive a few doses of Xanax while in the hospital. He will not be discharged on Xanax.
Patient's medical conditions have been optimized. He will be discharged to short-term rehab. He needs to follow-up with his primary care doctor 1 week after he leaves rehab, as well as his usual neurologist in 3 to 4 weeks.
Disposition: Short-term rehab
Discharge planning: Required 36 min
Discharge Plan
-
Patient Disposition: Custodial/SNF
Discharge Diagnosis/Procedures: Generalized weakness, deconditioning, Parkinson's disease, hyponatremia, orthostatic hypotension, labile hypertension, constipation, urinary/stool incontinence, anxiety
Diet: Regular and Restrict fluids to 48 oz
Activity: As tolerated
Blood Work: BMP on 09/08/2023
Activity Restrictions/Additional Instructions:
Continue 48 ounce fluid restriction for your low sodium, your sodium is 133 the day of discharge.
You need a BMP/blood work check on 09/08/2023.
We recommend pelvic floor physical therapy for urine and stool incontinence.
Follow-up with your primary care doctor 1 week after you leave rehab.
Referrals:
Niraj Cook MD [Family Provider] - in one week
Prescriptions:
New
polyethylene glycol 3350 [HealthyLax] 17 gram Powder In Packet
17 g PO DAILY Qty: 0 0RF
midodrine 5 mg Tablet
10 mg PO TID@0800,1300,1800 Qty: 0 0RF
Continued
sertraline 100 MG tablet
100 mg PO BID
cyanocobalamin (vitamin B-12) 1,000 MCG tablet
1,000 mcg PO DAILY
cholecalciferol (vitamin D3) 2,000 UNITS tablet
2,000 unit PO DAILY
aspirin 325 mg Tablet
325 mg PO DAILY
carbidopa-levodopa 25-100 mg tablet
2 tab PO TID
Discharge Orders:
Discharge Patient (As Directed); Ordered 09/02/23
Ordered By: Efren Kidd
Discharge Date and Time
Discharge Date/Time: 09/02/23 17:36
--- NOTE | 2023-09-02 19:25 | PTCARENOTE ---
IV discontinued. Report called to [facility] at [facility]. Pt transferred via ambulance stretcher off the floor with all belongings.
== END 2023-09-02 17:36 ==
LOC: 4 WEST ACU 22:53
PROVIDERS: Hospitalist; ADMITTING PHYSICIAN Hospitalist; ATTENDING PHYSICIAN Family Medicine; EMERGENCY PHYSICIAN Emergency Medicine; FAMILY PHYSICIAN Internal Medicine
DX: R54 Age-related physical debility (principal); G20.A1 Parkinson's disease without dyskinesia, without mention of fluctuations; E86.0 Dehydration; R29.6 Repeated falls; K59.00 Constipation, unspecified; E87.1 Hypo-osmolality and hyponatremia; F41.0 Panic disorder [episodic paroxysmal anxiety]; R15.9 Full incontinence of feces; I95.1 Orthostatic hypotension; F41.1 Generalized anxiety disorder; Y93.9 Activity, unspecified; W19.XXXA Unspecified fall, initial encounter; Y92.009 Unspecified place in unspecified non-institutional (private) residence as the place of occurrence of the external cause; M47.816 Spondylosis without myelopathy or radiculopathy, lumbar region; E78.00 Pure hypercholesterolemia, unspecified; R35.0 Frequency of micturition; R32 Unspecified urinary incontinence; E87.20 Acidosis, unspecified; E16.2 Hypoglycemia, unspecified; I10 Essential (primary) hypertension; F41.9 Anxiety disorder, unspecified; F10.10 Alcohol abuse, uncomplicated; Z87.891 Personal history of nicotine dependence; Z80.0 Family history of malignant neoplasm of digestive organs; Z79.82 Long term (current) use of aspirin; Z88.8 Allergy status to other drugs, medicaments and biological substances; Z66 Do not resuscitate
CPT/HCPCS: 70450; 72100; 80048; 80053; 81003; 81015; 82533; 82550; 82607; 82962; 83935; 84300; 84443; 84484; 85025; 85027; 93005; 97167; 97530; 97535; 99285; G0378

== ENCOUNTER → 2023-09-07 13:33 | Outpatient (REF) | payer OTHER, SELFPAY ==
[2023-09-07 13:55] LABS: Urine Albumin Negative (Neg - Trace); Urine Bilirubin Negative (Negative); Urine Character Clear (Clear); Urine Color Yellow; Urine Glucose Negative (Negative); Urine Ketone Negative (Negative); Urine Leukocyte Negative (Negative); Urine Nitrite Negative (Negative); Urine Occult Blood 3+ (Negative); Urine Urobilinogen Negative (Neg - 1+)
== END ==
LOC: OLABP 13:33
PROVIDERS: ATTENDING PHYSICIAN Family Medicine
DX: G20.A1 Parkinson's disease without dyskinesia, without mention of fluctuations (principal); M62.81 Muscle weakness (generalized); R26.2 Difficulty in walking, not elsewhere classified; E16.2 Hypoglycemia, unspecified; E87.1 Hypo-osmolality and hyponatremia
CPT/HCPCS: 81003; 81015

== ENCOUNTER → 2023-09-08 10:36 | Outpatient (REF) | payer OTHER, SELFPAY ==
[2023-09-08 13:13] LABS: Blood Urea Nitrogen 16 mg/dl (9-20); Calcium 9.7 mg/dl (8.4-10.2); Carbon Dioxide 26 mmol/L (22-30); Chloride 97 mmol/L (98-107); Glucose 95 mg/dl (70-99); Potassium 4.5 mmol/L (3.5-5.1); Sodium 135 mmol/L (135-145); eGFR 42.75
== END ==
LOC: OLABN 10:36
PROVIDERS: ATTENDING PHYSICIAN Family Medicine
DX: G20.A1 Parkinson's disease without dyskinesia, without mention of fluctuations (principal); M62.81 Muscle weakness (generalized); R26.2 Difficulty in walking, not elsewhere classified; E16.2 Hypoglycemia, unspecified; I10 Essential (primary) hypertension; F41.9 Anxiety disorder, unspecified; I65.01 Occlusion and stenosis of right vertebral artery
CPT/HCPCS: 36415; 80048

== ENCOUNTER → 2023-09-10 11:53 | Outpatient (REF) | payer OTHER, SELFPAY ==
[2023-09-10 13:11] LABS: % Basophils 0.4 % (0-2); % Eosinophils 2.3 % (0-6); % Immature Granulocytes 0.6 % (0-0.5); % Lymphocytes 13.7 % (20.5-51.1); % Monocytes 9.9 % (1.7-9.3); % Neutrophils 73.1 % (42.2-75.2); Absolute Eosinophils 0.1 10^3/uL (0-0.7); Absolute Lymphocytes 0.7 10^3/uL (1.2-3.4); Absolute Monocytes 0.5 10^3/uL (0.1-0.6); Absolute Neutrophils 3.8 10^3/uL (1.4-6.5); Hematocrit 37.5 % (39.0-52.0); Hemoglobin 12.8 g/dL (13.0-18.0); Mean Corp Hgb Conc. 34.1 g/dL (33.0-37.0); Mean Corpuscular Hgb 30.3 pg (27.0-31.0); Mean Corpuscular Volume 88.9 fL (80.0-94.0); Mean Platelet Volume 9.5 fL (7.4-10.4); Nucleated Red Blood Cells % 0 % (-); Platelet Count 156 10^3/uL (130-400); Red Blood Cell Count 4.22 10^6/uL (4.70-6.10); Red Cell Dist. Width 13.4 % (11.5-14.5); White Blood Cell Count 5.2 10^3/uL (4.8-10.8)
[2023-09-10 13:18] LABS: Blood Urea Nitrogen 19 mg/dl (9-20); Calcium 8.8 mg/dl (8.4-10.2); Carbon Dioxide 25 mmol/L (22-30); Chloride 100 mmol/L (98-107); Glucose 77 mg/dl (70-99); Potassium 4.6 mmol/L (3.5-5.1); Sodium 131 mmol/L (135-145); eGFR 32.71
[2023-09-11 10:48] LABS: ALT (SGPT) < 10 U/L (0-50); AST (SGOT) 18 U/L (17-59); Albumin 3.4 g/dl (3.5-5.0); Alkaline Phosphatase 80 U/L (38-126); Amylase 45 U/L (30-110); Direct Bilirubin 0.2 mg/dl (0.0-0.4); Lipase 50 U/L (23-300); Total Bilirubin 0.7 mg/dl (0.2-1.3); Total Protein 6.1 g/dl (6.3-8.2)
== END ==
LOC: OLABP 11:53
PROVIDERS: ATTENDING PHYSICIAN Family Medicine
DX: G20.A1 Parkinson's disease without dyskinesia, without mention of fluctuations (principal); M62.81 Muscle weakness (generalized); R26.2 Difficulty in walking, not elsewhere classified; E16.2 Hypoglycemia, unspecified; E87.1 Hypo-osmolality and hyponatremia; I10 Essential (primary) hypertension; F41.9 Anxiety disorder, unspecified; I65.29 Occlusion and stenosis of unspecified carotid artery
CPT/HCPCS: 36415; 80048; 80053; 82150; 82248; 83690; 85025

== ENCOUNTER → 2023-09-10 19:00 | Outpatient (REF) | payer OTHER, SELFPAY ==
[2023-09-11 19:22] LABS: % Basophils 0.4 % (0-2); % Eosinophils 0.2 % (0-6); % Immature Granulocytes 0.4 % (0-0.5); % Lymphocytes 6.4 % (20.5-51.1); % Neutrophils 84.6 % (42.2-75.2); Absolute Lymphocytes 0.5 10^3/uL (1.2-3.4); Absolute Monocytes 0.7 10^3/uL (0.1-0.6); Absolute Neutrophils 6.9 10^3/uL (1.4-6.5); Hematocrit 40.3 % (39.0-52.0); Hemoglobin 13.7 g/dL (13.0-18.0); Mean Corpuscular Hgb 30.2 pg (27.0-31.0); Mean Corpuscular Volume 88.8 fL (80.0-94.0); Mean Platelet Volume 9.5 fL (7.4-10.4); Nucleated Red Blood Cells % 0 % (-); Platelet Count 203 10^3/uL (130-400); Red Blood Cell Count 4.54 10^6/uL (4.70-6.10); Red Cell Dist. Width 13.3 % (11.5-14.5); White Blood Cell Count 8.1 10^3/uL (4.8-10.8)
[2023-09-11 19:34] LABS: Osmolality Serum 285 mOsm/kg (275-300)
[2023-09-11 19:35] LABS: Urine Albumin Trace (Neg - Trace); Urine Bilirubin Negative (Negative); Urine Character Very Cloudy (Clear); Urine Color Brown; Urine Glucose Negative (Negative); Urine Ketone 1+ (Negative); Urine Leukocyte 1+ (Negative); Urine Nitrite Negative (Negative); Urine Occult Blood 4+ (Negative); Urine Specific Gravity 1.025 (<1.030); Urine Urobilinogen Negative (Neg - 1+)
[2023-09-11 19:40] LABS: Blood Urea Nitrogen 21 mg/dl (9-20); Calcium 9.3 mg/dl (8.4-10.2); Carbon Dioxide 26 mmol/L (22-30); Chloride 97 mmol/L (98-107); Glucose 82 mg/dl (70-99); Potassium 4.8 mmol/L (3.5-5.1); Sodium 133 mmol/L (135-145); eGFR > 60.00
[2023-09-11 19:41] LABS: Osmolality Urine 477 mOsm/kg (300-900)
[2023-09-11 19:41] LABS: Creatine Phosphokinase < 20 U/L (55-170)
[2023-09-11 19:56] LABS: Urine Sodium 43 mmol/L (30-90)
[2023-09-11 20:08] LABS: Urine Bacteria Moderate (Negative); Urine Red Blood Cell 30-40 /HPF (0-2)
[2023-09-11 20:09] LABS: Urine Amorphous Seen
== END ==
LOC: OLABP 19:00
PROVIDERS: ATTENDING PHYSICIAN Family Medicine
DX: G20.A1 Parkinson's disease without dyskinesia, without mention of fluctuations (principal); M62.81 Muscle weakness (generalized); R26.2 Difficulty in walking, not elsewhere classified; E16.2 Hypoglycemia, unspecified; E87.1 Hypo-osmolality and hyponatremia; I10 Essential (primary) hypertension; K59.00 Constipation, unspecified; F41.9 Anxiety disorder, unspecified; F41.0 Panic disorder [episodic paroxysmal anxiety]; I65.29 Occlusion and stenosis of unspecified carotid artery
CPT/HCPCS: 36415; 80048; 81003; 81015; 82550; 83930; 83935; 84300; 85025; 87086

== ENCOUNTER → 2023-09-12 11:09 | Outpatient (REF) | payer MEDICARE, SELFPAY ==
[2023-09-12 11:36] LABS: Hematocrit 34.7 % (39.0-52.0); Hemoglobin 11.8 g/dL (13.0-18.0); Mean Corpuscular Hgb 29.8 pg (27.0-31.0); Mean Corpuscular Volume 87.6 fL (80.0-94.0); Mean Platelet Volume 9.3 fL (7.4-10.4); Platelet Count 155 10^3/uL (130-400); Red Blood Cell Count 3.96 10^6/uL (4.70-6.10); Red Cell Dist. Width 13.3 % (11.5-14.5); White Blood Cell Count 6.1 10^3/uL (4.8-10.8)
[2023-09-12 11:52] LABS: Blood Urea Nitrogen 17 mg/dl (9-20); Calcium 8.5 mg/dl (8.4-10.2); Carbon Dioxide 24 mmol/L (22-30); Chloride 101 mmol/L (98-107); Glucose 65 mg/dl (70-99); Potassium 4.2 mmol/L (3.5-5.1); Sodium 132 mmol/L (135-145); eGFR > 60.00
== END ==
LOC: OLABP 11:09
PROVIDERS: ATTENDING PHYSICIAN Family Medicine
DX: J44.9 Chronic obstructive pulmonary disease, unspecified (principal); I65.22 Occlusion and stenosis of left carotid artery
CPT/HCPCS: 36415; 80048; 85027

== ENCOUNTER → 2023-09-16 11:01 | Outpatient (REF) | payer OTHER, SELFPAY ==
[2023-09-16 11:43] LABS: % Basophils 0.6 % (0-2); % Immature Granulocytes 0.4 % (0-0.5); % Lymphocytes 18.8 % (20.5-51.1); % Monocytes 6.8 % (1.7-9.3); % Neutrophils 72.4 % (42.2-75.2); Absolute Eosinophils 0.1 10^3/uL (0-0.7); Absolute Monocytes 0.4 10^3/uL (0.1-0.6); Absolute Neutrophils 3.7 10^3/uL (1.4-6.5); Hematocrit 38.1 % (39.0-52.0); Mean Corp Hgb Conc. 34.1 g/dL (33.0-37.0); Mean Corpuscular Hgb 29.9 pg (27.0-31.0); Mean Corpuscular Volume 87.6 fL (80.0-94.0); Mean Platelet Volume 9.8 fL (7.4-10.4); Nucleated Red Blood Cells % 0 % (-); Platelet Count 176 10^3/uL (130-400); Red Blood Cell Count 4.35 10^6/uL (4.70-6.10); Red Cell Dist. Width 13.1 % (11.5-14.5); White Blood Cell Count 5.1 10^3/uL (4.8-10.8)
[2023-09-16 12:09] LABS: Blood Urea Nitrogen 15 mg/dl (9-20); Carbon Dioxide 26 mmol/L (22-30); Chloride 102 mmol/L (98-107); Glucose 77 mg/dl (70-99); Potassium 4.2 mmol/L (3.5-5.1); Sodium 132 mmol/L (135-145); eGFR > 60.00
== END ==
LOC: OLABP 11:01
PROVIDERS: ATTENDING PHYSICIAN Family Medicine
DX: G20.A1 Parkinson's disease without dyskinesia, without mention of fluctuations (principal); I10 Essential (primary) hypertension; E87.1 Hypo-osmolality and hyponatremia; M62.81 Muscle weakness (generalized)
CPT/HCPCS: 80048; 85025

== ENCOUNTER → 2023-09-23 09:39 | Outpatient (REF) | payer OTHER, SELFPAY ==
[2023-09-23 11:14] LABS: % Basophils 0.6 % (0-2); % Eosinophils 1.1 % (0-6); % Immature Granulocytes 0.4 % (0-0.5); % Lymphocytes 18.3 % (20.5-51.1); % Monocytes 8.2 % (1.7-9.3); % Neutrophils 71.4 % (42.2-75.2); Absolute Eosinophils 0.1 10^3/uL (0-0.7); Absolute Monocytes 0.4 10^3/uL (0.1-0.6); Absolute Neutrophils 3.8 10^3/uL (1.4-6.5); Hematocrit 36.3 % (39.0-52.0); Mean Corp Hgb Conc. 33.1 g/dL (33.0-37.0); Mean Corpuscular Hgb 29.4 pg (27.0-31.0); Mean Platelet Volume 9.8 fL (7.4-10.4); Nucleated Red Blood Cells % 0 % (-); Platelet Count 176 10^3/uL (130-400); Red Blood Cell Count 4.08 10^6/uL (4.70-6.10); Red Cell Dist. Width 13.5 % (11.5-14.5); White Blood Cell Count 5.4 10^3/uL (4.8-10.8)
[2023-09-23 13:00] LABS: Blood Urea Nitrogen 14 mg/dl (9-20); Calcium 9.2 mg/dl (8.4-10.2); Carbon Dioxide 27 mmol/L (22-30); Chloride 100 mmol/L (98-107); Glucose 79 mg/dl (70-99); Potassium 4.1 mmol/L (3.5-5.1); Sodium 135 mmol/L (135-145); eGFR > 60.00
== END ==
LOC: OLABP 09:39
PROVIDERS: ATTENDING PHYSICIAN Family Medicine
DX: I25.10 Atherosclerotic heart disease of native coronary artery without angina pectoris (principal); I10 Essential (primary) hypertension
CPT/HCPCS: 36415; 80048; 85025

== ENCOUNTER → 2023-10-02 08:53 | Outpatient (REF) | payer OTHER, SELFPAY ==
[2023-10-02 09:37] LABS: % Basophils 0.6 % (0-2); % Eosinophils 1.2 % (0-6); % Immature Granulocytes 0.3 % (0-0.5); % Lymphocytes 10.3 % (20.5-51.1); % Monocytes 7.7 % (1.7-9.3); % Neutrophils 79.9 % (42.2-75.2); Absolute Eosinophils 0.1 10^3/uL (0-0.7); Absolute Lymphocytes 0.7 10^3/uL (1.2-3.4); Absolute Monocytes 0.5 10^3/uL (0.1-0.6); Absolute Neutrophils 5.3 10^3/uL (1.4-6.5); Hematocrit 33.3 % (39.0-52.0); Hemoglobin 11.6 g/dL (13.0-18.0); Mean Corp Hgb Conc. 34.8 g/dL (33.0-37.0); Mean Corpuscular Hgb 29.4 pg (27.0-31.0); Mean Corpuscular Volume 84.3 fL (80.0-94.0); Mean Platelet Volume 9.8 fL (7.4-10.4); Nucleated Red Blood Cells % 0 % (-); Platelet Count 165 10^3/uL (130-400); Red Blood Cell Count 3.95 10^6/uL (4.70-6.10); White Blood Cell Count 6.6 10^3/uL (4.8-10.8)
== END ==
LOC: OLABN 08:53
PROVIDERS: ATTENDING PHYSICIAN Student in an Organized Health Care Education/Training Program
DX: I10 Essential (primary) hypertension (principal)
CPT/HCPCS: 36415; 85025

== ENCOUNTER → 2023-10-14 09:38 | Outpatient (REF) | payer OTHER, SELFPAY ==
[2023-10-14 11:52] LABS: Urine Albumin 1+ (Neg - Trace); Urine Bilirubin Negative (Negative); Urine Character Very Cloudy (Clear); Urine Color Yellow; Urine Glucose Negative (Negative); Urine Ketone Negative (Negative); Urine Leukocyte 2+ (Negative); Urine Nitrite Positive (Negative); Urine Occult Blood 4+ (Negative); Urine Urobilinogen Negative (Neg - 1+)
[2023-10-14 11:59] LABS: Urine Mucus Many
[2023-10-14 12:00] LABS: Urine Bacteria Many (Negative)
[2023-10-14 12:01] LABS: Urine White Cell 16-20 /HPF (0-5)
== END ==
LOC: OLABN 09:38
PROVIDERS: ATTENDING PHYSICIAN Student in an Organized Health Care Education/Training Program
DX: G20.A1 Parkinson's disease without dyskinesia, without mention of fluctuations (principal); B96.4 Proteus (mirabilis) (morganii) as the cause of diseases classified elsewhere
CPT/HCPCS: 81003; 81015; 87077; 87086; 87186

== ENCOUNTER → 2023-11-07 16:57 | Outpatient (REF) | payer OTHER, SELFPAY ==
[2023-11-07 18:25] LABS: Urine Albumin 1+ (Neg - Trace); Urine Bilirubin Negative (Negative); Urine Character Slightly Cloudy (Clear); Urine Color Amber; Urine Glucose Negative (Negative); Urine Ketone 1+ (Negative); Urine Leukocyte 2+ (Negative); Urine Nitrite Positive (Negative); Urine Occult Blood 4+ (Negative); Urine Specific Gravity 1.015 (<1.030); Urine Urobilinogen Negative (Neg - 1+)
[2023-11-07 19:15] LABS: Urine Bacteria Moderate (Negative); Urine White Cell 80-90 /HPF (0-5)
== END ==
LOC: OLABN 16:57
PROVIDERS: ATTENDING PHYSICIAN Student in an Organized Health Care Education/Training Program
DX: R33.8 Other retention of urine (principal); G20.C Parkinsonism, unspecified
CPT/HCPCS: 81003; 81015; 87077; 87086; 87186

== ENCOUNTER 2024-01-06 06:26 | Day surgery (SDC) | payer OTHER, SELFPAY ==
[2024-01-01 15:16] VITALS: BMI 25.8
[2024-01-06 09:55] VITALS: BP 138/66
[2024-01-06 10:17] VITALS: BMI 25.8
[2024-01-06] MEDS: NORMOSOL-R 1000 IV (10:19)
[2024-01-06 10:26] LABS: Urine Albumin Trace (Neg - Trace); Urine Bilirubin Negative (Negative); Urine Character Clear (Clear); Urine Color Yellow; Urine Glucose Negative (Negative); Urine Ketone Negative (Negative); Urine Leukocyte 2+ (Negative); Urine Nitrite Positive (Negative); Urine Occult Blood 3+ (Negative); Urine Urobilinogen Negative (Neg - 1+)
[2024-01-06 11:10] LABS: Urine Squamous Cell 0-2 /LPF (Few); Urine Triple Phosphate Crystal Present
[2024-01-06 11:12] LABS: Urine Bacteria Moderate (Negative)
[2024-01-06 13:20] VITALS: BP 127/70; BP 138/66
[2024-01-06 14:15] VITALS: BP 134/73
[2024-01-06 14:45] VITALS: BP 144/79
[2024-01-06 15:20] VITALS: BP 123/67
== END 2024-01-06 16:10 | disposition home or self-care (01) ==
LOC: SDS 06:26
PROVIDERS: ATTENDING PHYSICIAN Specialist
DX: N31.9 Neuromuscular dysfunction of bladder, unspecified (principal); N31.2 Flaccid neuropathic bladder, not elsewhere classified; G20.C Parkinsonism, unspecified; N36.0 Urethral fistula; R33.9 Retention of urine, unspecified
CPT/HCPCS: 51040; 81003; 81015; 87086; J1580

== ENCOUNTER 2024-01-14 11:18 | Emergency (ER) | payer OTHER, SELFPAY ==
[2024-01-14] VITALS (8 sets, daily range): BP systolic 126–162; BP diastolic 65–97; BMI 25.6
--- NOTE | 2024-01-14 11:32 | ED.GENMED ---
History of Present Illness
General
Chief Complaint: Back Pain
Time Seen by Provider: 01/14/24 11:31
History of Present Illness
History of Present Illness:
HPI: Patient presents from [facility] by ambulance due to left-sided back pain 'that feels like my kidney and worsens with movement'. He had a suprapubic catheter placed by Dr. Evangelista on 01/06/2024. This was placed due to neurogenic bladder
with urethral breakdown and fistulization/chronic urinary retention. He currently denies any pain in the back.
EXAM:
GENERAL: Well appearing in no distress
HEENT: Moist oral mucosa
CARDIOVASCULAR: No murmurs, normal heart rate, regular rhythm, No chest wall tenderness
PULMONARY: No respiratory distress, breath sounds are clear and equal
ABDOMEN: Soft with no peritoneal signs, no tenderness, suprapubic tube noted draining clear yellow urine into the bag, no CVA tenderness
NEUROLOGIC: Excellent strength all extremities, no coordination deficits
PSYCHIATRIC: Appropriate mental status, normal insight and judgement
EXTREMITIES: Nontender, no edema, moves all extremities equally
SKIN: No rash, no lesions
TIME OF INITIAL ENCOUNTER: 11:35 AM
NUMBER AND COMPLEXITY OF PROBLEMS ADDRESSED AT THE ENCOUNTER
� Chronic conditions affecting care: Neurogenic bladder, COPD, CAD, blood pressure, hyperlipidemia, Parkinson
� Acute Exacerbation and/or Progression of Chronic Illness: This is an acute problem
� Differential Diagnosis includes: Ureteral stone, pyelonephritis, musculoskeletal back pain as the symptoms worsened with position changes
AMOUNT AND/OR COMPLEXITY OF DATA TO BE REVIEWED AND ANALYZED
� I performed an independent evaluation of and my interpretation is:
EKG:
CT: CT shows moderate perivesicular edema with inflammatory changes anteriorly suggestive of cystitis
X-rays:
Laboratory Studies: White count 8.0, hemoglobin 12.4, normal renal function, urinalysis shows 50-60 white cells per high-power field
Other:
� Review of other/old records: I reviewed the operative note from Dr. Evangelista from 1 week ago
� Clinical information was obtained by an independent historian: I reviewed EMS notes/records from [facility]
� Prescriptions/Medications Considered but not given: Considered IV Rocephin however the patient has poor vascular access, he does not appear septic
� Further testing considered but not performed:
RISK OF COMPLICATIONS AND/OR MORBIDITY OR MORTALITY OF PATIENT MANAGEMENT
� Social determinants of health affecting care: Resides at [facility]
� Discussion with other providers: I discussed case with Dr. Monterroso who recommends that he follows up with Dr. Evangelista
� Escalation of care including admission/observation vs risk of discharge considered: The patient currently has no significant pain but reports some left-sided flank discomfort earlier. He says he was given Tylenol and 'pain
meds'. I reviewed the notes from [facility] he indicates that he was started on cefdinir yesterday. However the patient does not appear septic and vital signs are not consistent with sepsis. On reassessment prior to discharge she remains to
appear very comfortable. He is already on antibiotics.
Past History
Past History
ED Past Medical History: Hypercholesterolemia and Other (Parkinson's, recurrent bronchitis and pneumonia, status post left carotid stent)
ED Past Surgical History: Orthopedic and Other (Carotid)
Social History
Tobacco: Former smoker
Alcohol: None
Drug: None
Personal:
Living: with family
Employment: Retired
Family History
Family History: Other (Liver cancer)
Phy Exam
Physical Exam
Physical Exam:
See HPI
Course
Orders/Labs/Results
Orders:
Orders
01/14/24 11:36
CT Abd/pel Without Iv Or Oral Urgent
Comment:
Reason For Exam: L flank pain recent SP tube placed
01/14/24 11:39
Basic Metabolic Panel Urgent
Complete Blood Count/With Diff Urgent
Urinalysis Reflex To Culture Urgent
Date Specimen was Collected: 01/14/24
Time Specimen was Collected: 11:38
Urine Microscopic Reflex Cult Urgent
Urine Culture Urgent
CHELSEY Source: U
Specimen Description:
Date Specimen was Collected: 01/14/24
Time Specimen was Collected: 11:38
01/14/24 13:27
CefTRIAXone [Rocephin] 1,000 mg IV NOW STA
Abnormal Lab Results
01/14/24
11:39
RBC 4.32 L 10^6/uL
(4.70-6.10)
Hgb 12.4 L g/dL
(13.0-18.0)
Hct 37.1 L %
(39.0-52.0)
Abs Immat Gran (auto) 0.1 H 10^3/uL
(0-0.05)
Absolute Lymphs (auto) 0.7 L 10^3/uL
(1.2-3.4)
Immature Gran % 0.6 H %
(0-0.5)
Neutrophils % 81.5 H %
(42.2-75.2)
Lymphocytes % 8.5 L %
(20.5-51.1)
Ur Occult Blood Reflex 3+ A
(Negative)
Urine Nitrite (Reflex) Positive A
(Negative)
Leukocyte Esterase Rfl 2+ A
(Negative)
Urine RBC 11-15 A /HPF
(0-2)
Urine WBC (Reflex) 50-60 A /HPF
(0-5)
Urine Bacteria (Reflex) Many A
(Negative)
01/14/24 11:39
01/14/24 11:39
Vital Signs
Initial and Last Documented VS:
Initial Vital Signs
Temp Pulse Resp BP Pulse Ox
98.7 F 71 25 144/78 98
01/14/24 11:24 01/14/24 11:24 01/14/24 11:24 01/14/24 11:24 01/14/24 11:24
Last Documented Vital Signs
Temp Pulse Resp BP Pulse Ox
98.7 F 66 24 131/67 98
01/14/24 11:24 01/14/24 13:03 01/14/24 13:03 01/14/24 13:02 01/14/24 13:03
*Critical Care Note
Total Time (30-74mins, 75-104mins- exclusive of procedures): Not Applicable
ED Attending Note
-
Portions of this chart may have been created with voice recognition software.� Occasional wrong word or��sound alike� substitutions may have occurred due to the inherent limitations of voice recognition software.
Discharge Plan
Departure
Patient Disposition: Home (Routine Discharge)
Date of Disposition: 01/14/24
Time of Disposition: 13:32
Patient with high blood pressure during this ER visit?: Yes
Discharge Problem:
Acute flank pain
Instructions: Flank Pain (DC)
Prescriptions:
No Action
sertraline 100 MG tablet
100 mg PO DAILY
cyanocobalamin (vitamin B-12) 1,000 MCG tablet
1,000 mcg PO WE
Rx Instructions:
weekly
cholecalciferol (vitamin D3) 2,000 UNITS tablet
5,000 unit PO MONTHLY
aspirin 325 mg Tablet
325 mg PO DAILY
carbidopa-levodopa 25-100 mg tablet
2 tab PO TID
polyethylene glycol 3350 [HealthyLax] 17 gram Powder In Packet
17 g PO DAILY Qty: 0 0RF
latanoprost 0.005 % Drops
1 drp OPHTHALMIC (EYE) HS
Rx Instructions:
Both eyes
acetaminophen 325 mg Tablet
650 mg PO Q4H PRN (Reason: mild pain, fever)
lidocaine [Lidocaine Pain Relief] 4 % Adhesive Patch,Medicated
1 patch TOPICAL DAILY
Patient Comments:
removed per Mede rec from longterm.
magnesium hydroxide [Milk of Magnesia] 400 mg/5 mL Suspension
30 ml PO HS PRN (Reason: constipation)
tamsulosin 0.4 mg Capsule
0.4 mg PO DAILY
phenazopyridine [Pyridium] 100 mg Tablet
100 mg PO DAILY PRN (Reason: bladder mucosa irritation)
bisacodyl 10 mg Suppository
10 mg NM DAILY PRN (Reason: constipation)
lidocaine 4 % Gel
1 applic TOPICAL DAILY PRN (Reason: pain)
midodrine 5 mg tablet
10 mg PO DAILY
Referrals:
Henrik Aiken MD, PhD [Family Provider] -
Max Evangelista MD [Active] - Tomorrow
Activity Restrictions/Additional Instructions:
The cause of your symptoms is unclear. Your white blood cell count is normal. Your vital signs do not suggest any sign of a severe infection. You do have somewhat of an increased number of white cells in the urinalysis however this could be
related to the recent procedure. The CAT scan shows no sign of kidney stones. The CT does suggest pancreatic cystic lesions possibly pseudocysts however the radiologist recommends an outpatient dedicated MRI/MRCP of the abdomen without with
gadolinium contrast for further evaluation. I spoke Dr. Monterroso who recommends that Dr. Evangelista be contacted tomorrow by either you or the staff at [facility]. Continue cefdinir.
Interventions
Interventions:
*ED COVID-19 Vaccine History Last Done: 01/14/24 11:27
ED-Musculoskeletal Assessment Last Done: 01/14/24 11:32
Discharge Date and Time
Print Language: BAHAMIAN
[2024-01-14 12:09] LABS: Blood Urea Nitrogen 16 mg/dl (9-20); Calcium 9.1 mg/dl (8.4-10.2); Carbon Dioxide 29 mmol/L (22-30); Chloride 102 mmol/L (98-107); Estimated Creatinine Clearance 71 ml/min; Glucose 87 mg/dl (70-99); Potassium 4.8 mmol/L (3.5-5.1); Sodium 137 mmol/L (135-145); eGFR > 60.00
[2024-01-14 12:10] LABS: Urine Albumin Negative (Neg - Trace); Urine Bilirubin Negative (Negative); Urine Character Clear (Clear); Urine Color Yellow; Urine Glucose Negative (Negative); Urine Ketone Negative (Negative); Urine Leukocyte 2+ (Negative); Urine Nitrite Positive (Negative); Urine Occult Blood 3+ (Negative); Urine Urobilinogen Negative (Neg - 1+)
[2024-01-14 12:42] LABS: Urine Squamous Cell 0-2 /LPF (Few)
[2024-01-14 12:43] LABS: Urine Bacteria Many (Negative); Urine White Cell 50-60 /HPF (0-5)
[2024-01-14 12:55] LABS: % Basophils 0.5 % (0-2); % Eosinophils 0.9 % (0-6); % Immature Granulocytes 0.6 % (0-0.5); % Lymphocytes 8.5 % (20.5-51.1); % Neutrophils 81.5 % (42.2-75.2); Absolute Eosinophils 0.1 10^3/uL (0-0.7); Absolute Immature Granulocytes 0.1 10^3/uL (0-0.05); Absolute Lymphocytes 0.7 10^3/uL (1.2-3.4); Absolute Monocytes 0.6 10^3/uL (0.1-0.6); Absolute Neutrophils 6.5 10^3/uL (1.4-6.5); Hematocrit 37.1 % (39.0-52.0); Hemoglobin 12.4 g/dL (13.0-18.0); Mean Corp Hgb Conc. 33.4 g/dL (33.0-37.0); Mean Corpuscular Hgb 28.7 pg (27.0-31.0); Mean Corpuscular Volume 85.9 fL (80.0-94.0); Mean Platelet Volume 9.3 fL (7.4-10.4); Nucleated Red Blood Cells % 0 % (-); Platelet Count 184 10^3/uL (130-400); Red Blood Cell Count 4.32 10^6/uL (4.70-6.10); Red Cell Dist. Width 13.3 % (11.5-14.5)
== END 2024-01-14 19:32 | disposition home or self-care (01) ==
LOC: EMR 11:18
PROVIDERS: EMERGENCY PHYSICIAN Emergency Medicine; FAMILY PHYSICIAN Radiology Diagnostic Radiology
DX: R10.9 Unspecified abdominal pain (principal); R03.0 Elevated blood-pressure reading, without diagnosis of hypertension; Z87.891 Personal history of nicotine dependence
CPT/HCPCS: 99284; 74176; 80048; 81003; 81015; 85025; 87086; 87088; 87186

== ENCOUNTER → 2024-01-19 12:33 | Outpatient (REF) | payer OTHER, SELFPAY ==
[2024-01-19 12:57] LABS: % Basophils 0.5 % (0-2); % Eosinophils 6.6 % (0-6); % Immature Granulocytes 1.3 % (0-0.5); % Lymphocytes 23.8 % (20.5-51.1); % Monocytes 8.9 % (1.7-9.3); % Neutrophils 58.9 % (42.2-75.2); Absolute Eosinophils 0.3 10^3/uL (0-0.7); Absolute Immature Granulocytes 0.1 10^3/uL (0-0.05); Absolute Lymphocytes 0.9 10^3/uL (1.2-3.4); Absolute Monocytes 0.4 10^3/uL (0.1-0.6); Absolute Neutrophils 2.3 10^3/uL (1.4-6.5); Hematocrit 35.1 % (39.0-52.0); Hemoglobin 11.6 g/dL (13.0-18.0); Mean Corpuscular Hgb 28.8 pg (27.0-31.0); Mean Corpuscular Volume 87.1 fL (80.0-94.0); Mean Platelet Volume 9.1 fL (7.4-10.4); Nucleated Red Blood Cells % 0 % (-); Platelet Count 152 10^3/uL (130-400); Red Blood Cell Count 4.03 10^6/uL (4.70-6.10); Red Cell Dist. Width 13.2 % (11.5-14.5)
[2024-01-19 13:09] LABS: ALT (SGPT) < 10 U/L (0-50); AST (SGOT) 20 U/L (17-59); Albumin 3.2 g/dl (3.5-5.0); Alkaline Phosphatase 74 U/L (38-126); Blood Urea Nitrogen 18 mg/dl (9-20); Calcium 8.9 mg/dl (8.4-10.2); Carbon Dioxide 27 mmol/L (22-30); Chloride 102 mmol/L (98-107); Glucose 76 mg/dl (70-99); Potassium 4.2 mmol/L (3.5-5.1); Sodium 135 mmol/L (135-145); Total Bilirubin 0.3 mg/dl (0.2-1.3); Total Protein 6.2 g/dl (6.3-8.2); eGFR > 60.00
== END ==
LOC: OLABN 12:33
PROVIDERS: ATTENDING PHYSICIAN Student in an Organized Health Care Education/Training Program
DX: N31.9 Neuromuscular dysfunction of bladder, unspecified (principal)
CPT/HCPCS: 36415; 80053; 85025

== ENCOUNTER → 2024-02-16 10:45 | Outpatient (REF) | payer OTHER, SELFPAY ==
[2024-02-16 12:05] LABS: Urine Albumin Negative (Neg - Trace); Urine Bilirubin Negative (Negative); Urine Character Clear (Clear); Urine Color Yellow; Urine Glucose Negative (Negative); Urine Ketone Negative (Negative); Urine Leukocyte 2+ (Negative); Urine Nitrite Negative (Negative); Urine Occult Blood 1+ (Negative); Urine Specific Gravity 1.005 (<1.030); Urine Urobilinogen Negative (Neg - 1+)
[2024-02-16 13:09] LABS: Urine White Cell 16-20 /HPF (0-5)
[2024-02-16 13:10] LABS: Urine Amorphous Seen; Urine Bacteria Many (Negative)
[2024-02-16 13:34] LABS: % Basophils 0.9 % (0-2); % Eosinophils 5.1 % (0-6); % Immature Granulocytes 0.2 % (0-0.5); % Monocytes 10.5 % (1.7-9.3); % Neutrophils 58.3 % (42.2-75.2); Absolute Basophils 0.1 10^3/uL (0-0.2); Absolute Eosinophils 0.3 10^3/uL (0-0.7); Absolute Lymphocytes 1.3 10^3/uL (1.2-3.4); Absolute Monocytes 0.6 10^3/uL (0.1-0.6); Absolute Neutrophils 3.1 10^3/uL (1.4-6.5); Hematocrit 34.8 % (39.0-52.0); Hemoglobin 11.7 g/dL (13.0-18.0); Mean Corp Hgb Conc. 33.6 g/dL (33.0-37.0); Mean Corpuscular Hgb 29.3 pg (27.0-31.0); Mean Corpuscular Volume 87.2 fL (80.0-94.0); Mean Platelet Volume 10.1 fL (7.4-10.4); Nucleated Red Blood Cells % 0 % (-); Platelet Count 167 10^3/uL (130-400); Red Blood Cell Count 3.99 10^6/uL (4.70-6.10); Red Cell Dist. Width 14.1 % (11.5-14.5); White Blood Cell Count 5.3 10^3/uL (4.8-10.8)
[2024-02-16 14:26] LABS: Blood Urea Nitrogen 21 mg/dl (9-20); Calcium 9.1 mg/dl (8.4-10.2); Carbon Dioxide 29 mmol/L (22-30); Chloride 104 mmol/L (98-107); Glucose 75 mg/dl (70-99); Potassium 4.6 mmol/L (3.5-5.1); Sodium 141 mmol/L (135-145); eGFR > 60.00
== END ==
LOC: OLABN 10:45
PROVIDERS: ATTENDING PHYSICIAN Student in an Organized Health Care Education/Training Program
DX: R31.9 Hematuria, unspecified (principal)
CPT/HCPCS: 36415; 80048; 81003; 81015; 85025; 87077; 87086; 87186

== ENCOUNTER → 2024-02-19 10:52 | Outpatient (REF) | payer OTHER, SELFPAY ==
[2024-02-19 11:44] LABS: % Basophils 0.5 % (0-2); % Eosinophils 9.8 % (0-6); % Immature Granulocytes 0.5 % (0-0.5); % Lymphocytes 5.7 % (20.5-51.1); % Monocytes 7.8 % (1.7-9.3); % Neutrophils 75.7 % (42.2-75.2); Absolute Eosinophils 0.6 10^3/uL (0-0.7); Absolute Lymphocytes 0.3 10^3/uL (1.2-3.4); Absolute Monocytes 0.5 10^3/uL (0.1-0.6); Absolute Neutrophils 4.5 10^3/uL (1.4-6.5); Hematocrit 35.2 % (39.0-52.0); Hemoglobin 11.6 g/dL (13.0-18.0); Mean Corpuscular Hgb 28.4 pg (27.0-31.0); Mean Corpuscular Volume 86.3 fL (80.0-94.0); Mean Platelet Volume 9.2 fL (7.4-10.4); Nucleated Red Blood Cells % 0 % (-); Platelet Count 152 10^3/uL (130-400); Red Blood Cell Count 4.08 10^6/uL (4.70-6.10); Red Cell Dist. Width 14.5 % (11.5-14.5); White Blood Cell Count 5.9 10^3/uL (4.8-10.8)
[2024-02-19 11:46] LABS: Blood Urea Nitrogen 22 mg/dl (9-20); Carbon Dioxide 26 mmol/L (22-30); Chloride 103 mmol/L (98-107); Glucose 84 mg/dl (70-99); Potassium 4.5 mmol/L (3.5-5.1); Sodium 138 mmol/L (135-145); eGFR > 60.00
== END ==
LOC: OLABN 10:52
PROVIDERS: ATTENDING PHYSICIAN Student in an Organized Health Care Education/Training Program
DX: N30.00 Acute cystitis without hematuria (principal)
CPT/HCPCS: 36415; 80048; 85025